=== PATIENT | male | born 1980 | race Caucasian/White ===

== ENCOUNTER → 2019-01-05 | Outpatient (CLI) | payer OTHER ==
--- NOTE | 2019-01-05 15:51 | DIREP ---
PROCEDURE:MRI SPINE CERVICAL W/O COMPARISON:None. INDICATIONS:RADICULOPATHY, CERVICAL REGION TECHNIQUE:A variety of imaging planes and parameters were utilized for visualization of suspected pathology without contrast. FINDINGS: CRANIOCERVICAL AREA:Normal foramen magnum with no Chiari malformation. ALIGNMENT:Normal. VERTEBRA:No fracture or osseous lesions. SPINAL CORD:Normal size, contour, and signal intensity. PARASPINAL AREA:Normal with no visible mass. OTHER:No additional findings. CERVICAL DISC LEVELS: C2-C3:No significant disc/facet abnormality, spinal stenosis, or foraminal stenosis. C3-C4:Annular bulge effacing the ventral thecal sac producing mild canal stenosis. Mild neural foraminal narrowing. C4-C5:Broad-based central disc protrusion effacing the ventral thecal sac and may contact the cord producing moderate central canal stenosis. No cord edema. Mild bilateral neural foraminal narrowing secondary to uncovertebral hypertrophy. C5-C6:Annular bulge effacing the ventral thecal sac. Uncovertebral hypertrophy producing mild bilateral neural foraminal narrowing. C6-C7:Left paracentral broad-based disc protrusion and uncovertebral hypertrophy producing moderate central canal stenosis and moderate left neural foraminal narrowing. Right neural foramen mildly narrowed. C7-T1:No significant disc/facet abnormality, spinal stenosis, or foraminal stenosis. CONCLUSION: 1. Cervical spondylosis producing moderate C4-5 and C6-7 central canal stenosis. 2. Moderate left C6-7 neural foraminal narrowing. 3. Mild central canal stenosis and neural foraminal narrowing at additional levels above. Dictated by: Nathan Jimenez M.D. on 01/05/2019 at 02:43 PM Read in [place]
--- NOTE | 2019-01-05 17:27 | DIREP ---
This report includes an Addendum and supersedes previous reports for this exam. PROCEDURE:MRI SPINE THORACIC W/O COMPARISON:None. INDICATIONS:N54.6 PAIN IN THORACIC SPINE TECHNIQUE:A variety of imaging planes and parameters were utilized for visualization of suspected pathology. Images were performed without contrast. FINDINGS: SPINAL CORD/CONUS:Normal signal and contour. No central canal stenosis.. ALIGNMENT:No measurable listhesis. DISCS:Disc spaces are maintained, no focal disc bulge or protrusion. VERTEBRAE:Sagittal T1 images needed to better assess neural foramina. PARASPINAL AREA:Normal. CONCLUSION: Incomplete exam, sagittal T1 sequence needed, patient will return for additional sagittal T1 images. As visualized, no focal disc pathology or central canal stenosis. Once patient returns for additional imaging, addendum will be made. Dictated by: Nathan Jimenez M.D. on 01/05/2019 at 04:22 PM NDUM: Sagittal T1 images were completed. Sagittal T1 images demonstrate no neural foraminal space-occupying process or narrowing. CONCLUSION: Normal MRI of the thoracic spine. Dictated by: Nathan Jimenez M.D. on 01/07/2019 at 02:55 PM Read in [place]
== END | disposition home or self-care (01) ==
LOC: MRI 10:15
PROVIDERS: ATTEND Nurse Practitioner
DX: M47.22 Other spondylosis with radiculopathy, cervical region (principal); M48.02 Spinal stenosis, cervical region
CPT/HCPCS: 72141; 72146

== ENCOUNTER → 2019-03-29 | Outpatient (CLI) | payer OTHER ==
[2019-03-29 09:21] LABS: BASOPHIL % 0.8 % (0.0-0.2); EOSINOPHIL # 0.1 10^3/uL (0.0-0.2); EOSINOPHIL % 1.9 % (0.0-5.0); LYMPHOCYTES # 1.63 10^3/uL1 (1.0-4.8); LYMPHOCYTES % 43.1 % (24.0-44.0); MEAN CORP HGB 33.9 pg (26-34); MONOCYTES # 0.4 10^3/uL (0.3-0.8); MONOCYTES % 9.8 % (5.0-12.0); NEUTROPHIL # 1.7 10^3/uL (1.8-7.7); NEUTROPHILS % 44.1 % (41.0-85.0); PLATELET COUNT 203 10^3/uL (150-400); RED CELL DISTRIBUTION WIDTH 11.3 % (11.5-14.5)
[2019-03-29 09:45] LABS: ALANINE AMINOTRANSFERASE(ML) 43 U/L (12-78); ALKALINE PHOSPHATASE 69 U/L (50-136); ASPARTATE AMINO TRANSFERASE 26 U/L (0-35); CALCIUM 8.6 mg/dL (8.4-10.5); CARBON DIOXIDE 26.1 mmol/L (20.0-32); CHOLESTEROL 217 mg/dL (120-240); GLUCOSE 92 mg/dL (70-110); HDL CHOLESTEROL 57 mg/dL (32-96)
== END | disposition home or self-care (01) ==
LOC: LAB 09:11
PROVIDERS: ATTEND Nurse Practitioner
DX: E55.9 Vitamin D deficiency, unspecified (principal); J35.8 Other chronic diseases of tonsils and adenoids; I10 Essential (primary) hypertension
CPT/HCPCS: 36415; 80053; 80061; 82306; 85025; 87070

== ENCOUNTER → 2019-04-26 | Outpatient (CLI) | payer OTHER ==
--- NOTE | 2019-04-26 11:38 | DIREP ---
PROCEDURE: CT SPINE CERVICAL W/O COMPARISON:None. INDICATIONS:M54.2 CERVICALGIA FINDINGS: ALIGNMENT:Normal. VERTEBRAE:Normal. PARASPINAL AREA:Normal. OTHER:No additional findings. CERVICAL DISC LEVELS C2-C3:Normal. C3-C4:Normal. C4-C5:Normal. C5-C6:Normal. C6-C7:Normal. C7-T1:Normal. CONCLUSION:Normal cervical spine Dictated by: Tadeo Iniguez DO on 04/26/2019 at 11:36 AM
== END | disposition home or self-care (01) ==
LOC: RAD 09:57
PROVIDERS: ATTEND Neurological Surgery
DX: M54.2 Cervicalgia (principal)
CPT/HCPCS: 72125

== ENCOUNTER → 2019-05-04 | Outpatient (CLI) | payer OTHER ==
--- NOTE | 2019-05-04 19:23 | PCM.ECHO ---
APPROVED REPORT EXAM: Comprehensive 2D, Doppler, and color-flow Echocardiogram. Patient Location: OUT-PATIENT Indications Hypertension/HDD 2D Dimensions LVOT Diameter 2.34 (1.8-2.4cm) LVEF(%) 56.21 (>50%) M-Mode Dimensions RVDd 1.25 (2.1-3.2cm)Left Atrium(MM) 3.70 (2.5-4.0cm) IVSd 0.95 (0.7-1.1cm)Aortic Root 2.60 (2.2-3.7cm) LVDd 4.85 (4.0-5.6cm)Aortic Cusp Exc 1.95 (1.5-2.0cm) PWd 0.80 (0.7-1.1cm)MV EPSS 1.20 (<0.5cm) IVSs 1.20 cmFS (%) 27.45 % LVDs 3.50 (2.0-3.8cm)ESV(Teich) 52.12 ml PWs 1.40 cmLVEF(%) 53.23 (>50%) Volumes Biplane 2D LV VolumesBiplane 2D LA Volumes LVEDv [id number] mLLA ESV Index LVESv A4C49.15 mL Aortic Valve AoV Peak Samuel. 1.15 m/s AoV VTI 20.30 cm AO Peak GR. 5.30 mmHg AO Mean GR. 3.15 mmHg LVOT VTI 17.06 cm LVOT Peak Smauel. 0.72 m/s PIO(VTI)/BSA 3.61 cm2/m2 PIO (VTI) 3.61 cm2 Mitral Valve MV E Velocity 0.65m/sMR Peak Gr. 4.30mmHg MV A Velocity 0.95m/s Pulmonary Valve PV Peak Velocity0.90m/sPV Peak Grad.3.35mmHg RVOT VTI18.71cm Tricuspid Valve TR P. Velocity1.80m/sRAP PBCOACCK92.00mmHg TR Peak Gr.13.69fpGzPIXS32.41mmHg LEFT VENTRICLE The left ventricle is normal size. The left ventricular systolic function is normal. The left ventricular ejection fraction is within the normal range. There is normal left ventricular wall thickness. There is normal LV segmental wall motion. There is no ventricular septal defect visualized. No left ventricle thrombus noted on this study. LVEF is 60-65%. RIGHT VENTRICLE The right ventricle is normal size. The right ventricular systolic function is normal. There is normal right ventricular wall thickness. ATRIA The left atrium size is normal. The right atrium size is normal. The interatrial septum is intact with no evidence for an atrial septal defect. AORTIC VALVE The aortic valve is normal in structure. There is no aortic valvular stenosis. No aortic regurgitation is present. There is no aortic valvular vegetation. MITRAL VALVE The mitral valve is normal in structure. There is no mitral valve stenosis. Mild mitral regurgitation. There is no evidence of mitral valve vegetations. TRICUSPID VALVE The tricuspid valve is normal in structure. There is no tricuspid valve stenosis. Mild tricuspid regurgitation. There is no tricuspid valve vegetations. PULMONIC VALVE The pulmonary valve is normal in structure. There is no pulmonic valvular stenosis. There is no pulmonic valvular regurgitation. GREAT VESSELS The aortic root is normal in size. Pulmonary artery is not well visualized. Ascending aorta is not well visualized. The IVC is normal in size and collapses >50% with inspiration. PERICARDIUM There is no pericardial effusion. There is no pleural effusion. Other Information Study Quality: Fair <Conclusion> The left ventricular systolic function is normal. LVEF is 60-65%. Mild mitral regurgitation. Mild tricuspid regurgitation. Electronically signed by : EARL ATKINS. 05/04/2019 19:23:22
--- NOTE | 2019-05-04 20:20 | STRESS ---
DATE OF SERVICE: 05/04/2019 INDICATION FOR PROCEDURE: Chest pain. The patient exercised according to the three minute Mundo protocol for a total of 10 minutes reaching stage 4 of the 3-minute Mundo protocol. Speed was noted to be 4.2 miles per hour at a 16% grade. Blood pressure at rest was noted to be 150/105 with a heart rate of 88 beats per minute. EKG shows normal sinus rhythm at rest. The patient exercised for a total of 10 minutes reaching stage 4 of the 3-minute Mundo protocol. EKG during stress shows sinus tachycardia with no evidence of myocardial ischemia. Target heart rate was achieved. Maximum heart rate during stress was noted to be 190 beats per minute. This represents 104% of maximal predicted heart rate. At peak exercise, blood pressure was noted to be 187/112 with a heart rate of 190. Hypertensive response was noted during exercise. At the end of recovery, blood pressure was noted to be 145/82 with a heart rate of 130 beats per minute. EKG shows sinus tachycardia during recovery. The patient was recovered for at least 4 minutes. There were no symptoms of chest pain. Exercise was stopped due to target heart rate achieved as well as fatigue. IMPRESSION: Normal exercise treadmill stress test with no evidence of myocardial ischemia. Target heart rate was achieved. The patient exhibited good exercise tolerance. This is a negative study. EARL ATKINS D.O. DR: CHRISTINE/margie JOB# [id number]
== END | disposition home or self-care (01) ==
LOC: RT 11:01
PROVIDERS: ATTEND Internal Medicine Interventional Cardiology
DX: I08.1 Rheumatic disorders of both mitral and tricuspid valves (principal); I10 Essential (primary) hypertension
CPT/HCPCS: 93017; 93306